=== PATIENT | male | born 1970 | race Caucasian/White ===

== ENCOUNTER 2017-10-21 10:26 | Emergency (ER) | payer MEDICAID ==
[2017-10-21] MEDS: HYDROCODONE/APAP (5/325) TAB PO (10:55)
== END 2017-10-21 11:03 | disposition home or self-care (01) ==
LOC: FTE 10:26
DX: H60.91 Unspecified otitis externa, right ear (principal); H66.91 Otitis media, unspecified, right ear
CPT/HCPCS: 99284; Z7502

== ENCOUNTER 2017-10-25 09:43 | Emergency (ER) | payer MEDICAID | END 2017-10-25 11:15 | disposition home or self-care (01) | LOC: FTE 09:43 | DX: H92.02 Otalgia, left ear (principal) | CPT/HCPCS: 99283 ==